=== PATIENT | female | born 1960 | race Caucasian/White ===

== ENCOUNTER → 2019-11-27 | Outpatient (CLI) | payer BC ==
--- NOTE | 2019-11-28 10:29 | MM ---
Reason for exam: screening (asymptomatic). Last mammogram was performed 9 years and 1 month ago. History: Patient is postmenopausal. Family history of premenopausal breast cancer in sister at age 30. Took hormonal contraceptives beginning at age 16. Physical Findings: A clinical breast exam by your physician is recommended on an annual basis and results should be correlated with mammographic findings. MG Screening Mammo w CAD Bilateral CC and MLO view(s) were taken. Prior study comparison: October 25, 2010, bilateral digital screening mammo w/CAD. March 14, 2008, bilateral digital screening mammogram. There are scattered fibroglandular densities. There is chronic nodularity bilaterally. Asymmetric breast tissue right upper outer quadrant, stable. There is no discrete abnormality. ASSESSMENT: Benign, BI-RAD 2 RECOMMENDATION: Routine screening mammogram of both breasts in 1 year.
== END | disposition home or self-care (01) ==
LOC: RADMAMWWP 09:06
PROVIDERS: ATTEND Family Medicine
DX: Z12.31 Encounter for screening mammogram for malignant neoplasm of breast (principal)
CPT/HCPCS: 77067

== ENCOUNTER → 2019-11-27 | Outpatient (CLI) | payer BC ==
--- NOTE | 2019-11-27 15:56 | BD ---
EXAMINATION TYPE: Axial Bone Density DATE OF EXAM: 11/27/2019 COMPARISON: NONE CLINICAL HISTORY: 59 YR OLD FEMALE.....ICD-10 CODE: M85.88 OTHER DISORDER OF BONE DENSITY Height: 61.4 Weight: 212 FRAX RISK QUESTIONS: Family History (Parent hip fracture): NO FX RISK FACTORS HISTORY OF: Family History of Osteoporosis: YES, MOTHER Diet low in dairy products/other sources of calcium: YES, A BIT...LACTOSE INTOLERANT Postmenopausal woman: YES, ABOUT AGE 55 YRS OLD Lost more than 2 inches in height since high school: YES Hyperparathyroidism: NO Adrenal Insufficiency: NO MEDICATIONS: Additional Medications: BP MEDS, DIABETIC MEDS, Additional History: HYPERTENSION, DIABETIC EXAM MEASUREMENTS: Bone mineral densitometry was performed using the [employer] System. Bone mineral density as measured about the Lumbar spine is: ----- L1-L4(G/cm2): 1.160 T Score Values are as follows: ----- L1: -0.8 ----- L2: -0.9 ----- L3: 0.1 ----- L4: 0.6 ----- L1-L4: -0.2 Bone mineral density FIRST BONE DENSITY SCAN........BASELINE STUDY Bone mineral density about the R hip (g/cm2): 1.046 Bone mineral density about the L hip (g/cm2): 1.049 T Score values are as follows: -----R Neck: -0.3 -----L Neck: -1.1 -----R Total: 0.3 -----L Total: 0.3 Bone mineral density FIRST BONE DENSITY.....BASELINE STUDY FRAX%s: THERE IS A 6.6% CHANCE FOR A MAJOR OSTEOPOROTIC FX AND A 0.4% FOR HIP....PROBABILITY FOR FX IN 10 YRS TIME IMPRESSION: Osteopenia (T Score between -2.5 and -1). There is slightly increased risk of fracture and the patient may be considered for treatment. Re-Screen 2-5 years. NOTE: T-SCORE=SD OF THE YOUNG ADULT MEAN. MTDD
== END | disposition home or self-care (01) ==
LOC: RADBDWWP 09:27
PROVIDERS: ATTEND Family Medicine
DX: M85.88 Other specified disorders of bone density and structure, other site (principal)
CPT/HCPCS: 77080